=== PATIENT | female | born 2000 | race Caucasian/White ===

== ENCOUNTER 2023-05-20 19:41 | Emergency (ER) | payer MEDICAID, OTHER ==
[2023-05-20] MEDS ORDERED: levETIRAcetam 500 MG TAB ONE (20:39)
[2023-05-20 20:51] LABS: Bilirubin Negative (Negative); Blood, Urine Negative (Negative); Glucose, Urine (Dipstick) Negative (Negative); Ketone, Urine Negative (Negative); Leukocyte Small (Negative); Nitrite Negative (Negative); Protein, Urine (Dipstick) Negative (Neg-Trace); Urobilinogen 0.2 mg/dL (Less than 2); pH, Urine 5.5 (5.0-9.0)
[2023-05-20 20:51] LABS: #Basophils 0.1 thou/uL (0.0-0.2); #Eosinphils 0.5 thou/uL (0.0-0.7); #Monocytes 0.9 thou/uL (0.11-0.59); #Neutrophils 6.4 thou/uL (1.40-6.50); %Basophils 0.8 % (0.0-1.0); %Eosinophils 4.2 % (0.0-10.0); %Lymphocytes 33.7 % (21.0-51.0); %Monocytes 7.4 % (0.0-10.0); %Neutrophils 53.8 % (42.0-75.0); Hematocrit 40.3 % (36.0-47.0); Hemoglobin 13.4 g/dL (12.0-16.0); Mean Corpuscular HGB CONC 33.2 g/dL (32.0-36.0); Mean Corpuscular Hemoglobin 29.7 pg (27.0-31.0); Mean Corpuscular Volume 89.4 fl (78.0-98.0); Mean Platelet Volume 8.8 fL (7.4-10.4); Platelet Count 269 10x3/uL (130-400); RBC Distribution Width 14.2 % (11.5-14.5); White Blood Cell (WBC) Count 11.9 10x3/uL (4.8-10.8)
[2023-05-20 20:53] LABS: Bacteria/HPF 2+ HPF (None Seen); CAUTI Indications for Culture Alt mental st,lethar; Clarity Cloudy (Clear); Specific Gravity, Urine 1.028 (1.002-1.036); WBC/HPF 21-50 HPF (0-3)
[2023-05-20 20:54] LABS: Urine Culture Reflex Yes Yes
[2023-05-20 20:58] LABS: Pregnancy Test - Urine (BHCG) Negative (Negative); Pregu Control Bar Appear? YES (CONTROL BAR); Specific Gravity 1.028 (1.002-1.036)
[2023-05-20 20:59] LABS: Amphetamine Not Detected (NotDetected); Barbiturates Screen Not Detected (NotDetected); Benzodiazepine Screen Not Detected (NotDetected); Cocaine Metabolite Screen Not Detected (NotDetected); Methadone Not Detected (NotDetected); Methamphetamine Not Detected (NotDetected); Opiate Screen Not Detected (NotDetected); Oxycodone Screen Not Detected (NotDetected); Phencyclidine (PCP) Not Detected (NotDetected); Pregu Control Background? CLEAR/WHITE (CLR/WHITE); THC/Cannabinoid Screen Detected (NotDetected); Tricyclic Screen Not Detected (NotDetected)
[2023-05-20 21:09] LABS: Acetaminophen Less than 10 mcg/mL (10.0-30.0); Alcohol Less than 10.0 mg/dL (Less than 10); Salicylate Less than 8.0 mg/dL (15.0-30.0)
[2023-05-20 21:11] LABS: ALT (SGPT) 12 U/L (8-55); AST (SGOT) 12 U/L (5-34); Alkaline Phosphatase 67 U/L (40-110); Anion Gap 15 mmol/L (10-20); BUN (Urea Nitrogen) 15 mg/dL (7.0-18.7); Bilirubin, Total 0.2 mg/dL (0.2-1.2); Calc. Creatinine Clearance 0 mL/min (70-130); Calcium 8.9 mg/dL (7.8-10.44); Carbon Dioxide 20 mmol/L (22-29); Chloride 111 mmol/L (98-107); Estimated GFR 109; Globulin 3.1 g/dL (2.4-3.5); Glucose 103 mg/dL (70-105); Potassium 3.9 mmol/L (3.5-5.1); Protein, Total 7.1 g/dL (6.0-8.3); Sodium 142 mmol/L (136-145)
[2023-05-20] MEDS ORDERED: Cephalexin 500 MG CAP ONE (21:41)
== END 2023-05-20 21:51 | disposition home or self-care (01) ==
LOC: MADERS 19:41
DX: R56.9 Unspecified convulsions (principal); N39.0 Urinary tract infection, site not specified; E66.9 Obesity, unspecified; F17.210 Nicotine dependence, cigarettes, uncomplicated
CPT/HCPCS: 36415; 80053; 80177; 80306; 80307; 81001; 81025; 85025; 87077; 87086; 99284

== ENCOUNTER 2023-05-27 00:33 | Emergency (ER) | payer OTHER ==
[2023-05-27] MEDS ORDERED: levETIRAcetam 500 MG TAB ONE (00:48)
== END 2023-05-27 00:58 | disposition home or self-care (01) ==
LOC: MADERS 00:33
DX: G40.409 Other generalized epilepsy and epileptic syndromes, not intractable, without status epilepticus (principal); E66.9 Obesity, unspecified; F17.210 Nicotine dependence, cigarettes, uncomplicated; Z79.899 Other long term (current) drug therapy
CPT/HCPCS: 36416; 99283

== ENCOUNTER 2023-06-07 20:53 | Emergency (ER) | payer MEDICAID, OTHER ==
[2023-06-07 22:28] LABS: Bilirubin Negative (Negative); Blood, Urine Moderate (Negative); Glucose, Urine (Dipstick) Negative (Negative); Ketone, Urine Negative (Negative); Leukocyte Negative (Negative); Nitrite Negative (Negative); Protein, Urine (Dipstick) Negative (Neg-Trace); Specific Gravity, Urine 1.025 (1.005-1.030); Urobilinogen 0.2 mg/dL (Less than 2)
[2023-06-07 22:31] LABS: CAUTI Indications for Culture Alt mental st,lethar; Clarity Hazy (Clear); Squamous Epithelial 0-3 HPF (0-3); WBC/HPF 0-3 HPF (0-3)
[2023-06-07 22:32] LABS: Urine Culture Reflex No No
[2023-06-07 22:37] LABS: Amphetamine Not Detected (NotDetected); Barbiturates Screen Not Detected (NotDetected); Benzodiazepine Screen Not Detected (NotDetected); Cocaine Metabolite Screen Not Detected (NotDetected); Methadone Not Detected (NotDetected); Methamphetamine Not Detected (NotDetected); Opiate Screen Not Detected (NotDetected); Oxycodone Screen Not Detected (NotDetected); Phencyclidine (PCP) Not Detected (NotDetected); THC/Cannabinoid Screen Not Detected (NotDetected); Tricyclic Screen Not Detected (NotDetected)
[2023-06-07] MEDS ORDERED: AMOXicillin 250 MG CAP ONE (23:41)
== END 2023-06-07 23:53 | disposition home or self-care (01) ==
LOC: MADERS 20:53
DX: R56.9 Unspecified convulsions (principal); K04.7 Periapical abscess without sinus; K02.9 Dental caries, unspecified; E66.9 Obesity, unspecified; F17.210 Nicotine dependence, cigarettes, uncomplicated
CPT/HCPCS: 70450; 80306; 81001